=== PATIENT | male | born 1980 | race Caucasian/White ===

== ENCOUNTER 2018-03-31 13:11 | Emergency (ER) | payer OTHER ==
[~2018-03-31] VITALS: Ht 175.3 cm; Wt 83.9 kg
[2018-03-31 13:15] VITALS: BP 143/51
--- NOTE | 2018-03-31 13:26 | ER.PDOC ---
General Chief Complaint: Chest Pain-Cardiac Nature Stated Complaint: CHEST PAIN TRAVEL OUT OF US: No Time seen by MD: 13:24 Source: patient Exam Limitations: no limitations History of Present Illness Initial Comments Feeling funny with occasional lightheadedness for 4-5 Months. Severity: moderate Associated Symptoms: denies symptoms Allergies: Coded Allergies: No Known Allergies (Unverified , 03/31/18) Past Medical History Medical History: hypertension Social History Smoking: non-smoker, quit less than 1 year Alcohol Use: none Drug Use: none Review of Systems Constitutional: no symptoms reported EENTM: no symptoms reported Respiratory: no symptoms reported Cardiovascular: no symptoms reported Gastrointestinal: no symptoms reported Psychiatric/Neurological: see HPI All Other Systems: Reviewed and Negative Physical Exam General Appearance: No Apparent Distress, WD/WN, Anxious EENT: eyes nml inspection Neck: Non-Tender, Full Range of Motion, Supple, Normal Inspection Respiratory: chest non-tender, lungs clear, normal breath sounds, no respiratory distress CVS: reg rate & rhythm, no murmur, no gallop, pulses nml, nml capillary refill Gastrointestinal: Normal Bowel Sounds, No Organomegaly, No Pulsatile Mass, Non Tender Back: Normal Inspection, No CVA Tenderness Extremities: Normal Range of Motion 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 as Tested Results/Orders Results/Orders Laboratory Tests Test 03/31/18 13:20 White Blood Count 10.7 10^3/uL (4.5-11.0) Red Blood Count 5.72 10^6/uL (4.50-5.90) Hemoglobin 15.0 g/dL (13.9-16.3) Hematocrit 44.5 % (37.0-53.0) Mean Corpuscular Volume 77.8 fL (78-100) Mean Corpuscular Hemoglobin 26.2 pg (26-34) Mean Corpuscular Hemoglobin Concent 33.7 g/dL (33-37) Red Cell Distribution Width 14.0 % (11.5-14.5) Platelet Count 220 10^3/uL (150-400) Mean Platelet Volume 10.3 fL (7.8-11.0) Neutrophils (%) (Auto) 71.6 % (41.0-85.0) Lymphocytes (%) (Auto) 18.2 % (24.0-44.0) Monocytes (%) (Auto) 8.2 % (5.0-12.0) Neutrophils # (Auto) 7.7 10^3/uL (1.8-7.7) Lymphocytes # (Auto) 2.0 10^3/uL (1.0-4.8) Monocytes # (Auto) 0.9 10^3/uL (0.3-0.8) Absolute Immature Granulocyte (auto 0.02 10^3 u/L (0-2) Eosinophils % 1.5 % (0.0-5.0) Basophils % 0.3 % (0.0-0.2) Basophils # 0.0 10^3/uL (0.0-0.1) Eosinophil Count 0.2 10^3/uL (0.0-0.2) Sodium Level 139 mmol/L (132-145) Potassium Level 3.7 mmol/L (3.6-5.2) Chloride Level 102.0 mmol/L (96-109) Carbon Dioxide Level 24.2 mmol/L (20.0-32) Anion Gap 16.5 Blood Urea Nitrogen 12 mg/dL (7-18) Creatinine 0.91 mg/dL (0.59-1.40) Estimated GFR () 112.2 (>/=60) BUN/Creatinine Ratio 13.0 Glucose Level 120 mg/dL (70-110) Calcium Level 9.3 mg/dL (8.4-10.5) Total Bilirubin 0.3 mg/dL (0.2-1.0) Aspartate Amino Transf (AST/SGOT) 22 U/L (0-35) Alanine Aminotransferase (ALT/SGPT) 42 U/L (12-78) Alkaline Phosphatase 91 U/L (50-136) Total Creatine Kinase 130 U/L (39-308) Troponin I < 0.02 ng/mL (0.00-0.05) Total Protein 8.2 g/dL (6.4-8.2) Albumin 3.7 g/dL (3.4-5.0) Globulin 4.5 Percent Immature Gran (Cell Imm) 0.20 % (0.00-0.50) EKG/XRAY/CT/US EKG Comments: Normal XRAY: chest (No active disease) Departure Time of Disposition: 14:15 Disposition: 01 HOME, SELF-CARE Impression: Primary Impression: Anxiety Condition: Improved Referrals: PCP,UNKNOWN (PCP) PRIMARY CARE PROVIDER Additional Instructions: F/U with your PCP in 1-2 days Duration or Time Spent with Pa: 60 mins BONNIE MAC MD Mar 31, 2018 13:26
[2018-03-31 13:29] LABS: BASOPHIL % 0.3 % (0.0-0.2); EOSINOPHIL # 0.2 10^3/uL (0.0-0.2); EOSINOPHIL % 1.5 % (0.0-5.0); LYMPHOCYTES % 18.2 % (24.0-44.0); MEAN CELL HGB 26.2 pg (26-34); MEAN CELL HGB CONCENTRATION 33.7 g/dL (33-37); MEAN CORP VOLUME 77.8 fL (78-100); MEAN PLATELET VOLUME 10.3 fL (7.8-11.0); MONOCYTES # 0.9 10^3/uL (0.3-0.8); MONOCYTES % 8.2 % (5.0-12.0); NEUTROPHIL # 7.7 10^3/uL (1.8-7.7); NEUTROPHILS % 71.6 % (41.0-85.0); WHITE BLOOD CELL 10.7 10^3/uL (4.5-11.0)
--- NOTE | 2018-03-31 13:47 | DIREP ---
PROCEDURE:CHEST 1 VIEW COMPARISON:None. INDICATIONS:CHEST PAIN FINDINGS: LUNGS/PLEURA:No significant pulmonary parenchymal abnormalities. No effusions. VASCULATURE:Normal. Unremarkable pulmonary vasculature. CARDIAC:Normal. No cardiac silhouette abnormality or cardiomegaly. MEDIASTINUM:Normal. No visible mass or adenopathy. BONES:Normal. No fracture or visible bony lesion. OTHER:Negative. CONCLUSION:Normal examination. Dictated by: Xi Leger M.D. on 03/31/2018 at 01:46 PM
[2018-03-31 13:52] LABS: ALANINE AMINOTRANSFERASE(ML) 42 U/L (12-78); ALKALINE PHOSPHATASE 91 U/L (50-136); ASPARTATE AMINO TRANSFERASE 22 U/L (0-35); CALCIUM 9.3 mg/dL (8.4-10.5); CARBON DIOXIDE 24.2 mmol/L (20.0-32); GLUCOSE 120 mg/dL (70-110)
[2018-03-31 14:20] VITALS: BP 139/89
[2018-03-31 14:27] VITALS: BP 139/89
--- NOTE | 2018-03-31 16:12 | PCM.EKG ---
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
== END 2018-03-31 14:25 | disposition home or self-care (01) ==
LOC: ER 13:11
DX: F41.9 Anxiety disorder, unspecified (principal); R42 Dizziness and giddiness; I10 Essential (primary) hypertension; Z87.891 Personal history of nicotine dependence
CPT/HCPCS: 36415; 71045; 80053; 82550; 84484; 85025; 93005; 99284